=== PATIENT | male | born 1970 | race Caucasian/White ===

== ENCOUNTER 2020-07-03 16:09 | Outpatient (CLI) | payer OTHER, SELFPAY ==
--- NOTE | ~2020-07-03 | MR_ITS ---
EXAMINATION: MR cervical spine wo con DATE: 07/03/2020 17:02 INDICATION: Cervical radiculopathy TECHNIQUE: Magnetic resonance imaging (MRI) of the cervical spine was performed without intravenous c ontrast. Sequences included sagittal T2-weighted FSE, sagittal T2-weighted FS FSE, sagittal T1-weight ed FSE, axial MERGE and axial T2-weighted FSE. COMPARISON: None FINDINGS: Straightening of the normal cervical lordosis. Vertebral body heights are normal. Annular fissures a t C5-C6, C6-C7 and C7-T1 with mild disc height loss at both C5-C6 and C6-C7. Cord signal intensity is normal. Cervical soft tissues are unremarkable. The following disc levels are specifically discussed : C2-C3: The disc does not extend beyond the endplate margin. There is no uncovertebral joint osteoarth ritis. There is mild right and minimal left facet joint osteoarthritis. There is no neural foraminal stenosis. There is no central canal stenosis. C3-C4: The disc does not extend beyond the endplate margin. There is mild left uncovertebral joint os teoarthritis. There is mild bilateral facet joint osteoarthritis. There is mild left neural foraminal stenosis. There is no central canal stenosis. C4-C5: Disc is minimally bulging. There is mild bilateral uncovertebral joint osteoarthritis. There i s mild bilateral facet joint osteoarthritis. There is normal bilateral neural foraminal stenosis. The re is no central canal stenosis. C5-C6: Disc is bulging, eccentric to the right, where it indents the right ventral surface of the cor d. There is moderate right and mild left uncovertebral joint osteoarthritis. There is mild left and m inimal right facet joint osteoarthritis. There is mild left and moderate right neural foraminal steno sis. There is mild central canal stenosis. C6-C7: Disc is mildly bulging with superimposed small central disc protrusion. There is moderate bila teral uncovertebral joint osteoarthritis. There is mild bilateral facet joint osteoarthritis. There i s moderate right and mild to moderate left neural foraminal stenosis. There is mild central canal vanda nosis. C7-T1: Disc is minimally bulging with small central disc protrusion. There is mild bilateral uncovert ebral joint osteoarthritis. There is moderate left and severe right facet joint osteoarthritis. There is mild left and mild to moderate right neural foraminal stenosis. There is mild central canal steno sis. IMPRESSION: 1. Mild to moderate cervical spondylosis. Reviewed, dictated and finalized at location B. T MAGISTRATE
== END 2020-07-03 16:10 | disposition home or self-care (01) ==
PROVIDERS: PCP Internal Medicine; Visit Provider Internal Medicine
DX: M47.23 Other spondylosis with radiculopathy, cervicothoracic region (principal); M48.03 Spinal stenosis, cervicothoracic region
CPT/HCPCS: 72141

== ENCOUNTER 2020-09-27 09:38 | Outpatient (CLI) | payer OTHER, SELFPAY ==
--- NOTE | 2020-09-27 11:30 | NEURO_ITS ---
Impression: # Complains of numbness of left hand. # Mild early evolving left Carpal Tunnel Syndrome. # No ulnar neuropathy. # Normal needle/EMG exam. # Clinical correlation recommended. Nerve Conduction Studies Anti Sensory Summary Table Stim Site NR Peak (ms) P-T Amp (?V) Site1 Site2 Delta-P (ms) Dist (cm) Scott (m/s) Left Median Anti Sensory (2-3nd Digit) Wrist 3.4 46.8 Wrist 2-3nd Digit 3.4 14.0 41 Wrist 3.5 36.1 Wrist 2-3nd Digit 3.4 14.0 41 Left Radial Anti Sensory (Base 1st Digit) Wrist 1.8 27.5 Wrist Base 1st Digit 1.8 0.0 Left Ulnar Anti Sensory (5th Digit) Wrist 2.3 48.1 Wrist 5th Digit 2.3 14.0 61 Motor Summary Table Stim Site NR Onset (ms) O-P Amp (mV) Site1 Site2 Delta-0 (ms) Dist (cm) Scott (m/s) Left Median Motor (Abd Poll Brev) Wrist 3.5 4.0 Elbow Wrist 5.1 31.0 61 Elbow 8.6 3.6 Left Ulnar Motor (Abd Dig Minimi) Wrist 2.5 5.2 A Elbow Wrist 5.4 32.0 59 A Elbow 7.9 4.2 F Wave Studies NR F-Lat (ms) L-R F-Lat (ms) Left Median (Mrkrs) (Abd Poll Brev) 28.65 Left Ulnar (Mrkrs) (Abd Dig Min) 29.14 EMG Side Muscle Nerve Root Ins Act Fibs Amp Dur Recrt Comment Left 1stDorInt Ulnar C8-T1 Nml Nml Nml Nml Nml Left Ext Indicis Radial (Post Int) C7-8 Nml Nml Nml Nml Nml Left Ext Digitorum Radial (Post Int) C7-8 Nml Nml Nml Nml Nml Left BrachioRad Radial C5-6 Nml Nml Nml Nml Nml Left PronatorTeres Median C6-7 Nml Nml Nml Nml Nml Left Abd Poll Brev Median C8-T1 Nml Nml Nml Nml Nml Left Biceps Musculocut C5-6 Nml Nml Nml Nml Nml Left Triceps Radial C6-7-8 Nml Nml Nml Nml Nml Left Deltoid Axillary C5-6 Nml Nml Nml Nml Nml MTDD
== END 2020-09-27 09:39 | disposition home or self-care (01) ==
PROVIDERS: PCP Internal Medicine; Visit Provider Internal Medicine
DX: G56.02 Carpal tunnel syndrome, left upper limb (principal); R20.2 Paresthesia of skin
CPT/HCPCS: 95886; 95909

== ENCOUNTER 2020-12-17 09:39 | Outpatient (CLI) | payer OTHER, SELFPAY ==
--- NOTE | ~2020-12-17 | MR_ITS ---
EXAMINATION: MR lumbar spine wo con DATE: 12/17/2020 10:55 INDICATION: Sciatica. TECHNIQUE: Magnetic resonance imaging (MRI) of the lumbar spine was performed without intravenous con trast. Sequences included sagittal T2-weighted FSE, sagittal T2-weighted FS FSE, sagittal T1-weighted FSE, and axial T2-weighted FSE. COMPARISON: None FINDINGS: There are chronic bilateral L5 pars defects. There is 3 mm anterolisthesis of L5 on S1. Lulu tebral body heights are normal. There is moderately decreased disc height at L5-S1 with endplate sara deling. The distal spinal cord signal intensity is normal. The conus medullaris is at L2. The followi ng disc levels are specifically discussed: L1-L2: The disc does not extend beyond the endplate margin. There is moderate right and mild left fac et joint osteoarthritis. There is no neural foraminal stenosis. There is no central canal stenosis. L2-L3: The disc does not extend beyond the endplate margin. There is moderate right and mild left fac et joint osteoarthritis. There is no neural foraminal stenosis. There is no central canal stenosis. L3-L4: The disc does not extend beyond the endplate margin. There is severe bilateral facet joint ost eoarthritis. There is mild bilateral neural foraminal stenosis. There is no central canal stenosis. L4-L5: There is a left foraminal protrusion. There is moderate bilateral facet joint osteoarthritis. There is moderate left neural foraminal stenosis. There is mild central canal stenosis. L5-S1: The disc is bulging and has an annular fissure. There is mild bilateral facet joint osteoarthr itis. There is mild bilateral neural foraminal stenosis. There is mild central canal stenosis. IMPRESSION: 1. Chronic bilateral L5 pars defects with grade 1 anterolisthesis of L5 on S1. 2. Moderate lower lumbar spondylosis. Reviewed, dictated and finalized at location A.
--- NOTE | ~2020-12-17 | MR_ITS ---
EXAMINATION: MR thoracic spine wo con DATE: 12/17/2020 10:54 INDICATION: Thoracic back pain. TECHNIQUE: Magnetic resonance imaging (MRI) of the thoracic spine was performed without intravenous c ontrast. Sagittal localizer T1-weighted FSE of the cervical spine was obtained. Thoracic spine sequen mook included sagittal T2-weighted FSE, sagittal T1-weighted FSE, sagittal T2-weighted FS FSE, and axi al T2-weighted FSE. COMPARISON: None FINDINGS: There is 6 degrees levocurvature of cervicothoracic spine. Vertebral body heights are meghna l. There is mildly decreased disc height at T6-T7 and T7-T8. At T6-T7, there is a central protrusion with annular fissure and with mild central canal stenosis. At T7-T8, there is a central protrusion wi th annular fissure and with mild central canal stenosis. At T8-T9, there is a central extrusion with mild central canal stenosis. There is multilevel facet joint osteoarthritis, severe at some levels. O n the right, there is mild neural foraminal stenosis at T3-T4, T4-T5, T5-T6, T6-T7, and T7-T8. On the left, there is mild neural foraminal stenosis at T1-T2, T6-T7, T9-T10, and T10-T11. The spinal cord signal intensity is normal. IMPRESSION: 1. Mild thoracic spondylosis. Reviewed, dictated and finalized at location A.
== END 2020-12-17 09:40 | disposition home or self-care (01) ==
LOC: ANHIMG 09:41
PROVIDERS: PCP Internal Medicine; Visit Provider Internal Medicine
DX: M54.30 Sciatica, unspecified side (principal); R07.89 Other chest pain; M47.894 Other spondylosis, thoracic region; M47.896 Other spondylosis, lumbar region
CPT/HCPCS: 72146; 72148

== ENCOUNTER 2020-12-22 15:42 | Outpatient (CLI) | payer OTHER, SELFPAY ==
--- NOTE | ~2020-12-22 | XR_ITS ---
EXAMINATION: XR chest 2V EXAM DATE: 12/22/2020 16:11 INDICATION: Right-sided chest pain. TECHNIQUE: Frontal and lateral projections of the chest obtained and reviewed. There is no prior charles dy for comparison. FINDINGS: The lungs are clear. There are no pleural effusions. The cardiomediastinal silhouette is within normal limits. There is no pneumothorax suspected. The bones and soft tissues are unremarkab le. There is no significant interval change. IMPRESSION: No acute cardiopulmonary findings. Reviewed, dictated and finalized at location G.
== END 2020-12-22 15:43 | disposition home or self-care (01) ==
LOC: ANHIMG 15:47
PROVIDERS: PCP Internal Medicine; Visit Provider Internal Medicine
DX: R07.89 Other chest pain (principal)
CPT/HCPCS: 71046

== ENCOUNTER 2022-05-26 08:06 | Emergency (ER) | payer OTHER, SELFPAY ==
--- NOTE | 2022-05-26 08:14 | ED.EAR ---
HPI - Ear Problem General Chief complaint: Ear Stated complaint: EARACHE/COUGH Time Seen by Provider: 05/26/22 08:16 Source: patient Mode of arrival: ambulatory Limitations: no limitations History of Present Illness HPI Narrative: Mr. Swanson is a 52-year-old male patient presenting to the clinic today with complaints of ear pain and cough since Friday. He reports no fever or chills. Denies any known exposure to anyone with COVID, flu, or strep Related Data Home Medications Medication Instructions Recorded Confirmed cholecalciferol (vitamin D3) 25 1,000 unit PO DAILY 04/12/19 11/27/21 mcg (1,000 unit) capsule (Vitamin D3) multivitamin (Daily Multiple 1 tablet PO DAILY 04/12/19 11/27/21 tablet) omega 7-skn-mzz-fish oil 1,000 mg 1 cap PO DAILY 04/12/19 11/27/21 (120 mg-180 mg) capsule (Fish Oil) nystatin 150 million unit oral unit PO PRN 11/27/21 11/27/21 powder Allergies Allergy/AdvReac Type Severity Reaction Status Date / Time niacin Allergy Unknown ACHES/PAINS Verified 05/26/22 08:13 niacinamide Allergy Unknown ACHES/PAINS Verified 05/26/22 08:13 rosuvastatin AdvReac Severe Muscle Verified 05/26/22 08:13 Spasms, JOINT PAIN Review of Systems Review of Systems: Pertinent positives per HPI. Patient denies any fever, chills, rash, headache, visual changes, dizziness, cough, shortness of breath, chest pain, palpitations, nausea, vomiting, diarrhea, constipation, abdominal pain, or any urinary issues. [facility] Past Medical History Medical History COVID-19 twice Lab test positive for detection of COVID-19 virus PUD (peptic ulcer disease) Renal stones Family History Family History Father Family history of heart disease in male family member before age 55 Other Diabetes mellitus Family history of hypercholesterolemia Hypertension Social History Social History Smoking packs per day: 1 Smoking cigarettes per day: 20.0 Years smoked: 12 Smoking pack-years: 12.00 Smoking status: Former smoker Tobacco type: cigarettes Smokeless tobacco user: chewing tobacco Second hand tobacco smoke exposure: No Smoking end date: 06/09/99 Alcohol intake: current Drinks per week: 2 Substance use: never Substance use type: does not use Additional occupation/education comments: [employer] Gender identity (if verbalized by the patient): Male Comments At the time of my signature, I reviewed and agree with the nursing past medical, surgical, social, and family history. There is no relevant family history pertinent to the patient complaint. Exam Narrative: General: Well-developed, well nourished, in no apparent distress Head: Normocephalic, atraumatic Eyes: Pupils equally round and reactive to light bilaterally, EOM intact, sclera and conjunctive clear, no discharge, lids normal Ears: TMs intact, opaque, with fluid behind TMs, ear canals clear, no drainage, grossly hearing normal. Nose: Nares patent, clear nasal discharge, severe inflammation to the right anterior turbinates, maxillary sinus tenderness. Mouth: Oropharynx without lesions or masses, good dentition, MMM. Postnasal drip Neck: Supple, trachea midline, no enlargement of anterior or posterior cervical nodes, no thyroid masses or goiter palpable. Cardio: Regular rate and rhythm, s1 and s2 normal, no murmur appreciated. Resp: Clear to auscultation bilaterally anteriorly and posteriorly, no rhonchi, rales, wheezing or rubs Course Course Emergency Course: Portions of this record may have been created with voice recognition software. Level of Care: Express Care Visit Vital Signs Vital signs: Vital signs reviewed Medical Decision Making [facility] Narrative Medical decision making narrative: At the time of visit patient is r
[2022-05-26 08:15] VITALS: BP 165/96; PULSE 90; RESP 16; TEMP 36.9; O2SAT 100
== END 2022-05-26 08:30 | disposition home or self-care (01) ==
PROVIDERS: Emergency Provider Nurse Practitioner Family; PCP Internal Medicine
DX: J06.9 Acute upper respiratory infection, unspecified (principal); R09.82 Postnasal drip; H65.03 Acute serous otitis media, bilateral; Z87.891 Personal history of nicotine dependence; Z86.16 Personal history of COVID-19
CPT/HCPCS: 99213; G0463

== ENCOUNTER 2022-10-27 00:45 | Emergency (ER) | payer OTHER, SELFPAY ==
--- NOTE | ~2022-10-27 | CT_ITS ---
EXAMINATION: CT abdomen pelvis wo con DATE: 10/27/2022 01:50 INDICATION: Right flank pain TECHNIQUE: Computed tomography (CT) of the abdomen and pelvis was performed without intravenous contr ast. The dose-length product (DLP) was 354.49 mGy-cm. Automated exposure control and iterative recons truction technique were employed. COMPARISON: 12/12/2004 FINDINGS: Minimal dependent atelectasis is present in the lung bases. The heart size is normal. The l iver, spleen, pancreas, and adrenal glands are normal. A stone is present in the nondistended gallbla dder. There is a 4 mm stone of the right mid ureter causing mild right hydroureteronephrosis. There a re multiple nonobstructing stones of the right kidney which measure up to 6 mm. Nonobstructing stones of the left kidney measure up to 5 mm. No pathologically enlarged abdominal or pelvic lymph nodes ar e identified. No free intraperitoneal gas or evidence of bowel obstruction. The appendix is normal. T here is a fat-containing left inguinal hernia. There is moderate lumbar spondylosis at L5-S1. IMPRESSION: 1. 4 mm stone of the right mid ureter causing mild hydroureteronephrosis. 2. Bilateral nonobstructing nephrolithiasis. Reviewed, dictated and finalized at location A.
[2022-10-27 00:53] VITALS: BP 176/92; PULSE 60; RESP 14; O2SAT 99
[2022-10-27 01:03] VITALS: TEMP 36.6
--- NOTE | 2022-10-27 01:47 | ED.GENADULT ---
HPI - General Adult General Chief complaint: Urogenital-Male Stated complaint: kidney stone? Time Seen by Provider: 10/27/22 01:11 History of Present Illness HPI narrative: Patient is a 52-year-old gentleman who presents the emergency department with chief complaint of flank pain. Patient reports he has prior history of kidney stones and reports that today he felt as though he was passing a stone and reports that he could not get the pain under control at home. Patient reports that he started getting nauseated and decided to come to the emergency department. Upon arrival to the emergency department the patient states his pain is significantly improved and he feels as though he may have actually passed the stone. Related Data Home Medications Medication Instructions Recorded Confirmed cholecalciferol (vitamin D3) 25 1,000 unit PO DAILY 04/12/19 06/05/22 mcg (1,000 unit) capsule (Vitamin D3) multivitamin (Daily Multiple 1 tablet PO DAILY 04/12/19 06/05/22 tablet) omega 2-jut-kgh-fish oil 1,000 mg 1 cap PO DAILY 04/12/19 06/05/22 (120 mg-180 mg) capsule (Fish Oil) nystatin 150 million unit oral 150 unit PO USEASDIRECTD PRN Rash 11/27/21 06/05/22 powder Allergies Allergy/AdvReac Type Severity Reaction Status Date / Time niacin Allergy Unknown ACHES/PAINS Verified 10/27/22 01:01 niacinamide Allergy Unknown ACHES/PAINS Verified 10/27/22 01:01 rosuvastatin AdvReac Severe Muscle Verified 10/27/22 01:01 Spasms, JOINT PAIN Review of Systems Review of Systems: A 10 system review of systems was completed on the patient and is negative except for what is stated in the HPI. Nursing and ancillary documentation was reviewed. [facility] Past Medical History Medical History COVID-19 twice Lab test positive for detection of COVID-19 virus PUD (peptic ulcer disease) Renal stones Family History Family History Father Family history of heart disease in male family member before age 55 Other Diabetes mellitus Family history of hypercholesterolemia Hypertension Social History Social History Smoking packs per day: 1 Smoking cigarettes per day: 20.0 Years smoked: 12 Smoking pack-years: 12.00 Smoking status: Former smoker Tobacco type: cigarettes Smokeless tobacco user: chewing tobacco Second hand tobacco smoke exposure: No Smoking end date: 06/09/99 Alcohol intake: current Drinks per week: 2 Substance use: never Substance use type: does not use Living arrangements: with family Occupation/Education: occupation Additional occupation/education comments: [employer] Gender identity (if verbalized by the patient): Male Exam Narrative: GENERAL: Well-appearing, well-nourished, and in no acute distress. HEAD: Normocephalic, atraumatic. EYES: PERRLA and EOMI. ENT: Nares clear, no rhinorrhea or epistaxis. Mucous membranes moist. NECK: Supple. CHEST: Clear to auscultation. No respiratory distress. HEART: Regular rate and rhythm. No murmur heard. Normal peripheral pulses. ABDOMEN: Soft, nontender, nondistended, normal active bowel sounds. EXTREMITIES: Normal range of motion. No edema. SKIN: Warm, dry, no rash. NEURO: No focal deficits. Alert and oriented x3. PSYCH: Normal mood and affect. Course Vital Signs Vital signs: Vital Signs Pulse Rate 60 10/27/22 00:53 Respiratory Rate 14 10/27/22 00:53 Blood Pressure 176/92 H 10/27/22 00:53 Pulse Oximetry 99 10/27/22 00:53 Oxygen Delivery Room Air 10/27/22 00:53 Temperature 36.6 C 10/27/22 01:03 Pulse Rate 102 H 10/27/22 02:51 Respiratory Rate 20 10/27/22 02:51 Blood Pressure 182/98 H 10/27/22 02:51 Pulse Oximetry 100 10/27/22 02:51 Oxygen Delivery Room Air 10/27/22 00:53 Med
[2022-10-27] MEDS: SODIUM CHLORIDE 0.9% IV 1,000 ML 999 ML IV CONT (01:52)
[2022-10-27 01:59] LABS: Basophils Percent Auto 0.5 % (0.2-1.2); Eosinophils Absolute Auto 0.2 K/mm3 (0-0.3); Eosinophils Percent Auto 4.2 % (0-4.4); Hemoglobin 14.6 g/dL (14.0-18.0); Immature Granulocyte Absolute 0.02 K/mm3 (0.00-0.031); Immature Granulocyte Percent A 0.3 % (0-0.5); Lymphocytes Absolute Auto 1.25 K/mm3 (0.9-3.2); Lymphocytes Percent Auto 21.9 % (18.3-44.2); Mean Corpuscular Hemoglobin 30.6 pg (26-34); Mean Corpuscular Volume 90.1 fl (80-100); Mean Platelet Volume 9.5 fl (7.4-10.4); Monocytes Absolute Auto 0.4 K/mm3 (0.1-0.6); Neutrophils Absolute Auto 3.8 K/mm3 (1.3-6.7); Neutrophils Percent Auto 66.1 % (45.5-73.1); Platelet Count Result 202 k/mm3 (150-375); Red Blood Count 4.77 M/mm3 (4.6-6.20); Red Cell Distribution Width 11.9 % (11.5-14.5); White Blood Count 5.7 K/mm3 (4.5-10.0)
[2022-10-27 02:20] LABS: Alanine Aminotransferase 27 U/L (6-50); Albumin Level 4.5 g/dL (3.5-5.1); Alkaline Phosphatase 61 U/L (38-126); Anion Gap 9 mmol/L (8-16); Aspartate Amino Transferase 26 U/L (17-59); Bilirubin,Total 0.3 mg/dL (0.2-1.3); Blood Urea Nitrogen 18 mg/dL (9-20); Carbon Dioxide 26 mmol/L (22-30); Chloride 101 mmol/L (98-107); Estimated CRCL calculation 99 ml/min; Estimated Glomerular Filt Rate > 60; Glucose 123 mg/dL (65-110); Lipase 70 U/L (23-300); Potassium 3.6 mmol/L (3.4-5.0); Sodium 136 mmol/L (137-145)
[2022-10-27] MEDS: MORPHINE SULFATE (*CRX) 4 MG/ML INJ IV PUSH (02:46)
[2022-10-27 02:51] VITALS: BP 182/98; PULSE 102; RESP 20; O2SAT 100
[2022-10-27 04:30] VITALS: BP 141/91; PULSE 64; RESP 15; O2SAT 97
[2022-10-27] MEDS: TAMSULOSIN HCL 0.4 MG CAPSULE PO (04:36)
[2022-10-27] MEDS: HYDROcodone/acetaminophen (*CRX) 5-325 MG TABLET 1 TAB PO (04:37)
[2022-10-27 04:57] LABS: Appearance Urine Clear (Clear); Bilirubin Urine Negative (Negative); Blood Urine 3+ (Negative); Color Urine Yellow (Yellow); Glucose Urine UA Negative (Negative); Ketones Urine Negative (Negative); Leukocyte Esterase Ur Negative LEU/UL (Negative); Nitrate Urine Negative (Negative); Protein Urine Negative (Negative); Specific Grav Ur 1.015 (1.001-1.035); Urobilinogen Urine 0.2 mg/dL (<2.0); pH Urine 6.5 (5.0-9.0)
[2022-10-27 05:05] LABS: Add Urine Microscopic? YES
[2022-10-27 05:06] LABS: WBC Urine 0-3 /hpf
== END 2022-10-27 05:32 | disposition home or self-care (01) ==
PROVIDERS: Emergency Provider Emergency Medicine; PCP Internal Medicine
DX: N13.2 Hydronephrosis with renal and ureteral calculous obstruction (principal); Z87.442 Personal history of urinary calculi; Z86.16 Personal history of COVID-19; Z87.11 Personal history of peptic ulcer disease; Z87.891 Personal history of nicotine dependence
CPT/HCPCS: 36415; 74176; 80053; 81001; 83690; 85025; 96361; 96374; 99284; A9270; J2270; J7030

== ENCOUNTER 2023-06-13 11:14 | Emergency (ER) | payer OTHER, SELFPAY ==
--- NOTE | ~2023-06-13 | XR_ITS ---
Clinical Indication: Chest pain PA and lateral views of the chest: Comparison: 12/22/2020 Findings: The lungs are clear, without evidence of focal consolidation or pleural effusion. Cardiome diastinal silhouette is within normal limits. Bones and soft tissues are unremarkable. Impression: Normal chest. Reviewed, dictated and finalized at location . [employer]DER Impression: Normal chest.
--- NOTE | 2023-06-13 11:16 | ECG_ITS ---
Measurements Intervals [place] Rate: 94 P: 29 OK: 163 QRS: 21 QRSD: 102 T: 29 QT: 347 QTc: 436 Interpretive Statements SINUS RHYTHM NONSPECIFIC ST & T-WAVE ABNORMALITY- DIFFUSE LEADS BORDERLINE ECG NO PREVIOUS ECG AVAILABLE FOR COMPARISON Electronically Signed On 06-13-2023 11:31:20 [employer] by Dilshad Castaneda D.O.
[2023-06-13 11:37] VITALS: BP 153/88; PULSE 88; RESP 16; TEMP 36.8; O2SAT 99
[2023-06-13 11:41] LABS: Basophils Percent Auto 0.7 % (0.2-1.2); Eosinophils Absolute Auto 0.2 K/mm3 (0-0.3); Eosinophils Percent Auto 3.2 % (0-4.4); Hematocrit 46.1 % (42.0-52.0); Hemoglobin 15.2 g/dL (14.0-18.0); Immature Granulocyte Absolute 0.05 K/mm3 (0.00-0.031); Immature Granulocyte Percent A 0.9 % (0-0.5); Lymphocytes Absolute Auto 1.96 K/mm3 (0.9-3.2); Lymphocytes Percent Auto 34.6 % (18.3-44.2); Mean Corpuscular Hemoglobin 30.3 pg (26-34); Mean Corpuscular Volume 91.8 fl (80-100); Mean Platelet Volume 9.2 fl (7.4-10.4); Monocytes Absolute Auto 0.4 K/mm3 (0.1-0.6); Monocytes Percent Auto 7.8 % (2.6-8.5); Neutrophils Percent Auto 52.8 % (45.5-73.1); Platelet Count Result 216 k/mm3 (150-375); Red Blood Count 5.02 M/mm3 (4.6-6.20); Red Cell Distribution Width 11.7 % (11.5-14.5); White Blood Count 5.7 K/mm3 (4.5-10.0)
[2023-06-13 11:50] LABS: Alanine Aminotransferase 42 U/L (6-50); Albumin Level 4.3 g/dL (3.5-5.1); Alkaline Phosphatase 57 U/L (38-126); Anion Gap 8 mmol/L (8-16); Aspartate Amino Transferase 27 U/L (17-59); Bilirubin,Total 0.6 mg/dL (0.2-1.3); Blood Urea Nitrogen 16 mg/dL (9-20); Calcium 9.2 mg/dL (8.4-10.2); Carbon Dioxide 27 mmol/L (22-30); Chloride 103 mmol/L (98-107); Estimated CRCL calculation 90 ml/min; Estimated Glomerular Filt Rate > 60; Glucose 112 mg/dL (65-110); Lipase 61 U/L (23-300); Potassium 3.7 mmol/L (3.4-5.0); Sodium 138 mmol/L (137-145)
[2023-06-13 11:51] LABS: Prothrombin Time 13.5 Seconds (11.1-14.7)
[2023-06-13 11:52] LABS: Partial Thromboplastin Time 29.2 SECONDS (22.3-36.8)
[2023-06-13 12:02] LABS: Troponin I < 0.012 ng/mL (0.000-0.034)
[2023-06-13 13:04] VITALS: O2SAT 99
[2023-06-13 13:09] VITALS: BP 157/90; PULSE 79; RESP 11; O2SAT 100
--- NOTE | 2023-06-13 13:52 | ED.CHESTPAIN ---
HPI - Chest Pain General Chief Complaint: Chest Pain Stated Complaint: palp/dizzy Time Seen by Provider: 06/13/23 13:08 History of Present Illness HPI narrative: Patient is a 53-year-old male with a history of hypertension presenting with palpitations. Patient states that earlier today he had a sense of severe fatigue that was reminiscent of the time that he had COVID. States that he then developed palpitations and lightheadedness. States that he may have felt slightly short of breath. No chest pain. No numbness or weakness, cough, abdominal pain, nausea vomiting, leg swelling. States that this all started approximately 30 minutes after ingesting deer bologna and he has had similar symptoms after eating other meals that are high in salt and fat. Related Data Home Medications Medication Instructions Recorded Confirmed cholecalciferol (vitamin D3) 25 1,000 unit PO DAILY 04/12/19 12/06/22 mcg (1,000 unit) capsule (Vitamin D3) multivitamin (Daily Multiple 1 tablet PO DAILY 04/12/19 12/06/22 tablet) omega 3-ufa-vwv-fish oil 1,000 mg 1 cap PO DAILY 04/12/19 12/06/22 (120 mg-180 mg) capsule (Fish Oil) nystatin 150 million unit oral 150 unit PO USEASDIRECTD PRN Rash 11/27/21 12/06/22 powder Allergies Allergy/AdvReac Type Severity Reaction Status Date / Time niacin Allergy Unknown ACHES/PAINS Verified 06/13/23 13:03 niacinamide Allergy Unknown ACHES/PAINS Verified 06/13/23 13:03 rosuvastatin AdvReac Severe Muscle Verified 06/13/23 13:03 Spasms, JOINT PAIN Review of Systems Review of Systems: All systems reviewed & are unremarkable except as noted in HPI and below PMFSH Past Medical History Medical History COVID-19 twice Lab test positive for detection of COVID-19 virus PUD (peptic ulcer disease) Renal stones Family History Family History Father Family history of heart disease in male family member before age 55 Other Diabetes mellitus Family history of hypercholesterolemia Hypertension Social History Social History Smoking packs per day: 1 Smoking cigarettes per day: 20.0 Years smoked: 12 Smoking pack-years: 12.00 Smoking status: Former smoker Tobacco type: cigarettes Smokeless tobacco user: chewing tobacco Second hand tobacco smoke exposure: No Smoking end date: 06/09/99 Alcohol intake: current Drinks per week: 2 Substance use: never Substance use type: does not use Lack of Transportation: No Lack of Food: Never True Current Housing: I Have Housing Concerned About Future Housing: No Difficulty Paying Gas/Electric Bills: No Difficulty Paying for Meds: No Currently Unemployed: No Education: High School Diploma/GED Difficulty w/ Childcare or Family Care: No Living arrangements: with family Occupation/Education: occupation Additional occupation/education comments: [employer] Gender identity (if verbalized by the patient): Male Exam Narrative: GENERAL: Well-appearing, well-nourished, and in no acute distress. HEAD: Normocephalic, atraumatic. EYES: PERRLA and EOMI. ENT: Mucous membranes moist. NECK: Supple. CHEST: Clear to auscultation. No respiratory distress. HEART: Regular rate and rhythm. No murmur heard. Normal peripheral pulses. ABDOMEN: Soft, nontender, nondistended EXTREMITIES: Normal range of motion. No edema. SKIN: Warm, dry, no rash. NEURO: Alert and oriented x3. PSYCH: Normal mood and affect. Course Vital Signs Vital signs: Vital Signs Temperature 98.2 F 06/13/23 11:37 Pulse Rate 88 06/13/23 11:37 Respiratory Rate 16 06/13/23 11:37 Blood Pressure 153/88 H 06/13/23 11:37 Pulse Oximetry 99 06/13/23 11:37 Temperature 98.2 F 06/13/23 11:37 Pulse Rate 80 06/13/23 14:15 Respiratory Rate 19 01
[2023-06-13] MEDS: SODIUM CHLORIDE 0.9% IV 1,000 ML 999 ML IV CONT (14:14)
[2023-06-13 14:15] VITALS: BP 145/96; PULSE 80; RESP 19; O2SAT 100
--- NOTE | 2023-06-13 14:16 | ECG_ITS ---
Measurements Intervals [place] Rate: 76 P: 16 NV: 140 QRS: 36 QRSD: 96 T: 41 QT: 352 QTc: 396 Interpretive Statements SINUS RHYTHM BASELINE ARTIFACT- I, AVR, V3 NORMAL ECG COMPARED TO ECG 06/13/2023 11:25:10 NO SIGNIFICANT CHANGES Electronically Signed On 06-13-2023 14:28:37 [employer] by Dilshad Castaneda D.O.
[2023-06-13 14:43] LABS: Troponin I < 0.012 ng/mL (0.000-0.034)
[2023-06-13 15:26] VITALS: BP 145/89; PULSE 73; RESP 18; O2SAT 100
== END 2023-06-13 15:32 | disposition home or self-care (01) ==
PROVIDERS: Emergency Medicine; Emergency Provider Emergency Medicine; PCP Family Medicine
DX: R00.2 Palpitations (principal); R42 Dizziness and giddiness; Z86.16 Personal history of COVID-19; Z87.11 Personal history of peptic ulcer disease; Z87.442 Personal history of urinary calculi; Z87.891 Personal history of nicotine dependence; R94.31 Abnormal electrocardiogram [ECG] [EKG]
CPT/HCPCS: 36415; 71046; 80053; 83690; 84484; 85025; 85610; 85730; 93005; 96360; 99284; J7030

== ENCOUNTER 2024-03-09 08:31 | Outpatient (CLI) | payer OTHER, SELFPAY ==
--- NOTE | 2024-03-09 08:54 | EST_ITS ---
Patient Info Name: Patel Swanson Age: 53 years : 1970 Gender: Male Ht: 71 in Wt: 225 lbs BSA: 2.29 m2 HR: 72 bpm BP: 156 / 84 mmHg Exam Date: 03/09/2024 9:08 AM Exam Location: Echo Lab Patient Status: Outpatient Admit Date: 03/09/2024 Staff Ordering Physician: John Gutiérrez MD Paper Folder: Maya Flores RDCS Attending Provider: DILSHAD MELLO Referring Physician: Brock ZHOU; Exercise Technologist: Maya Flores RDCS Exercise Physician: Dilshad Mello DO Exam Type: CA stress echo Study Info Indications R07.9 - Chest pain, unspecified Treadmill exercise stress echocardiogram is performed. Summary 1. 1. Negative Jose M exercise stress test for ischemic ST changes by ECG criteria. 2. 2. Reduced functional capacity, achieving 8.9 METs of workload. 3. 3. Baseline hypertension. 4. 4. Appropriate HR response to exercise. 5. 5. Appropriate HR recovery at 1 minute post exercise. 6. 6. Negative stress echocardiogram for ischemia by wall motion analysis. Stress Echo Findings Left Ventricle Appropriate increase in LV endocardial thickening with systole. Appropriate augmentation of contractility with systole. No wall motion abnormality. Left Ventricle Normal LV systolic function, no wall motion abnormality. Protocol: Jose M Stress ECG Details Stage: REST Duration (min): 2 min : 15 sec Speed (mph): 0.0 Grade (%): 0 HR (bpm): 78 SBP (mmHg): 156 DBP (mmHg): 84 METS: --- Stage: REST Duration (min): 12 min : 58 sec Speed (mph): 0.0 Grade (%): 0 HR (bpm): 76 SBP (mmHg): 156 DBP (mmHg): 84 METS: --- Stage: STAGE 1 Duration (min): 1 min : 0 sec Speed (mph): 1.7 Grade (%): 10 HR (bpm): 110 SBP (mmHg): 156 DBP (mmHg): 84 METS: --- Stage: STAGE 1 Duration (min): 2 min : 0 sec Speed (mph): 1.7 Grade (%): 10 HR (bpm): 121 SBP (mmHg): 156 DBP (mmHg): 84 METS: --- Stage: STAGE 1 Duration (min): 3 min : 0 sec Speed (mph): 1.7 Grade (%): 10 HR (bpm): 124 SBP (mmHg): 167 DBP (mmHg): 85 METS: --- Stage: STAGE 2 Duration (min): 1 min : 0 sec Speed (mph): 2.5 Grade (%): 12 HR (bpm): 133 SBP (mmHg): 167 DBP (mmHg): 85 METS: --- Stage: STAGE 2 Duration (min): 2 min : 0 sec Speed (mph): 2.5 Grade (%): 12 HR (bpm): 139 SBP (mmHg): 198 DBP (mmHg): 89 METS: --- Stage: STAGE 2 Duration (min): 3 min : 0 sec Speed (mph): 2.5 Grade (%): 12 HR (bpm): 140 SBP (mmHg): 198 DBP (mmHg): 89 METS: --- Stage: STAGE 3 Duration (min): 1 min : 0 sec Speed (mph): 3.4 Grade (%): 14 HR (bpm): 153 SBP (mmHg): 160 DBP (mmHg): 85 METS: --- Stage: STAGE 3 Duration (min): 1 min : 7 sec Speed (mph): 0.0 Grade (%): 0 HR (bpm): 154 SBP (mmHg): 160 DBP (mmHg): 85 METS: --- Stage: RECOVERY Duration (min): 0 min : 53 sec Speed (mph): 0.0 Grade (%): 0 HR (bpm): 133 SBP (mmHg): 160 DBP (mmHg): 85 METS: --- Stage: RECOVERY Dura
== END 2024-03-09 08:32 | disposition home or self-care (01) ==
PROVIDERS: PCP Family Medicine; Visit Provider Family Medicine
DX: R07.89 Other chest pain (principal); R53.83 Other fatigue; I10 Essential (primary) hypertension
CPT/HCPCS: 93351

== ENCOUNTER 2024-12-30 14:46 | Outpatient (CLI) | payer OTHER, SELFPAY ==
--- NOTE | ~2024-12-30 | MR_ITS ---
MRI of the lumbar spine Clinical History: Back pain Technique: Axial T2-weighted images, and sagittal T1-weighted, T2-weighted, and T2 fat-sat images wer e acquired. COMPARISON: 12/17/2020 Findings: No acute fracture or subluxation identified. Osseous alignment is unchanged from prior exam . Stable minimal grade 1 retrolisthesis of L4 over L5. Stable bilateral L5 pars interarticularis defe cts. No suspicious bone marrow signal abnormality seen. At L1-L2 and L2-L3, intervertebral discs maintain normal signal position. No disc bulge or herniation T levels. There is moderate to advanced facet arthropathy at these levels. No spinal canal stenosis or neural foraminal narrowing at these levels. At L3-L4, there is degenerative disc narrowing with mild disc bulge and severe facet arthropathy. The re is moderate spinal canal stenosis/thecal sac compression. There is minimal neural foraminal narrow ing at this level. At L4-L5, there is degenerative disc narrowing with diffuse disc bulge and moderate to advanced facet arthropathy. There is moderate spinal canal stenosis/thecal sac compression. There is severe bilater al neural foraminal compromise. At L5-S1, there is degenerative disc narrowing with diffuse disc bulge and moderate facet arthropathy . No mague central canal stenosis. There is severe bilateral neural foraminal compromise. Paravertebral soft tissues are unremarkable. Impression: Severe degenerative spondylosis at L3-L4, L4-L5, L5-S1, as detailed above, overall similar to prior e xam. Stable bilateral L5 pars interarticularis defects. Reviewed, dictated and finalized at [facility]. Impression: Severe degenerative spondylosis at L3-L4, L4-L5, L5-S1, as detailed above, over all similar to prior exam. Stable bilateral L5 pars interarticularis defects.
== END 2024-12-30 14:47 | disposition home or self-care (01) ==
LOC: GOSHIMG 14:46
PROVIDERS: PCP Family Medicine; Visit Provider Family Medicine
DX: M47.896 Other spondylosis, lumbar region (principal); M47.897 Other spondylosis, lumbosacral region
CPT/HCPCS: 72148